=== PATIENT | female | born 1975 | race Caucasian/White ===

== ENCOUNTER → 2024-11-30 10:08 | Outpatient (BNVA) | payer SELFPAY | PROVIDERS: Family Provider Obstetrics & Gynecology; PCP Obstetrics & Gynecology; Visit Provider Internal Medicine | DX: E06.3 Autoimmune thyroiditis (principal); N95.1 Menopausal and female climacteric states | CPT/HCPCS: 36415; 82670; 83001; 83002; 84439; 84443 ==

== ENCOUNTER 2025-03-17 16:42 | Outpatient (CLI) | payer SELFPAY ==
--- NOTE | 2025-03-17 16:30 | USR_ITS ---
PROCEDURE INFORMATION: Exam: US Soft Tissue Head and Neck, Thyroid Exam date and time: 03/17/2025 5:04 PM Age: 49 years old Clinical indication: Condition or disease; Thyroid disorder; Other: Hashimotos disease; Additional info: See below and do close to next appt TECHNIQUE: Imaging protocol: Real-time ultrasound scan of the neck with image documentation. Exam focused on the thyroid. COMPARISON: No relevant prior studies available. FINDINGS: Right thyroid lobe: No nodules. Heterogeneous gland with mild elevation in Doppler signal. Left thyroid lobe: No nodules. Heterogeneous gland with mild elevation in Doppler signal. Isthmus: No nodules. Heterogeneous signal with mild elevation in Doppler signal. US/US thyroid [id number] IMPRESSION: 1. Heterogeneous thyroid gland with mild elevation in Doppler signal which could represent active inflammation. Correlate clinically. 2. No nodules or masses. 3. No lymphadenopathy.
== END 2025-03-17 16:43 | disposition home or self-care (01) ==
PROVIDERS: PCP Nurse Practitioner Family; Visit Provider Internal Medicine
DX: E06.3 Autoimmune thyroiditis (principal); N95.1 Menopausal and female climacteric states
CPT/HCPCS: 76536

== ENCOUNTER 2025-06-22 16:27 | Outpatient (CLI) | payer BC, SELFPAY ==
[2025-06-22 19:22] LABS: Follicle Stimulating Hormone 96.5 mIU/mL; Thyroid Stimulating Hormone 4.93 uIU/mL (0.27-4.20)
[2025-06-22 21:58] LABS: Free T4 Free Thyroxine 1.27 ng/dL (0.82-1.77)
== END 2025-06-22 16:28 | disposition home or self-care (01) ==
PROVIDERS: PCP Nurse Practitioner Family; Visit Provider Internal Medicine
DX: E06.3 Autoimmune thyroiditis (principal); N95.1 Menopausal and female climacteric states
CPT/HCPCS: 36415; 82670; 83001; 83002; 84439; 84443